=== PATIENT | female | born 1985 ===

== ENCOUNTER 2025-06-03 11:35 | Outpatient (AMB) | payer OTHER, SELFPAY ==
--- NOTE | 2025-06-03 11:37 | MHC.PC.OV ---
Vital Signs 06/03/25 11:39 Height 5 ft 1.42 in Weight 135 lb 2 oz BMI 25.2 BP 126/86 Blood Pressure Location Rt brachial Position Sitting Respiration 12 Pulse 93 Pulse Source Pulse Oximeter Temp 98.4 F Temp Source Oral Pulse Oximetry (%) 100 Oxygen Delivery Method Room Air Intake Visit Reasons: HUMAN RESOURCES RECEPTIONIST EST CARE Intake Note: New patient visit Senior Telecommunications Engineer Required: No Allergies No Known Allergies Allergy (Verified 06/03/25 11:41) Tobacco use date assessed: 06/03/25 Dental Screening Dental Screen Date: 06/03/25 Did you have a dental visit in the last 12 months?: Yes Did you have a dental problem in the last 6 months where you did not have access to dental care?: No Was dental information given to patient?: Patient has dentist HPI HPI Comments History of Present Illness Details 40 year old female with no past medical history presenting for physical exam and establish care. Has not been to pcp in awhile Family history of diabetes. [facility] Mammo < 1 year [facility] 2018 Dental UTD ROS CONSTITUTIONAL: Denies weight loss, fever and chills. HEENT: Denies changes in vision and hearing. RESPIRATORY: Denies SOB and cough. CV: Denies palpitations and CP GI: Denies abdominal pain, nausea, vomiting and diarrhea. : Denies dysuria and urinary frequency. MSK: Denies new myalgia and joint pain. SKIN: Denies rash and pruritus. NEUROLOGICAL: Denies headache PSYCHIATRIC: Denies recent changes in mood. PHYSICAL EXAM: GENERAL: Alert and oriented x 3. NAD EYES: EOMI. Anicteric. HENT: Moist mucous membranes. No scleral icterus. No cervical lymphadenopathy. LUNGS: Clear to auscultation bilaterally. CARDIOVASCULAR: Regular rate and rhythm. No murmur. No JVD. ABDOMEN: Soft, non-tender +bs EXTREMITIES: No edema. Non-tender. SKIN: No rashes or lesions. Warm. NEUROLOGIC: No focal neurological deficits. CN II-XII grossly intact PSYCHIATRIC: Cooperative. 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 1. Little interest or pleasure in doing things: not at all 2. Feeling down, depressed, or hopeless: not at all 3. Trouble falling or staying asleep, or sleeping too much: several days 4. Feeling tired or having little energy: several days 5. Poor appetite or overeating: not at all 6. Feeling bad about yourself - or that you are a failure or have let yourself or your family down: not at all 7. Trouble concentrating on things, such as reading the newspaper or watching television: not at all 8. Moving or speaking so slowly that other people could have noticed. Or the opposite - being so fidgety or restless that you have been moving around a lot more than usual: not at all 9. Thoughts that you would be better off or of hurting yourself in some way: not at all Total score: 2 Depression Screening Interpretation: Negative Depression Screening Done: Yes 63084 - PHQ-9 Billing: Yes Source: Developed by Drs. Luciano Pruett, Antonella Peter, Arun Celestin and colleagues, with an educational yancy from [employer]. Thrive Questionnaire Date Thrive assessed: 05/28/25 I am a: Patient What is your living situation today?: I have a steady place to live Within the past 12 months, did the food you bought not last and you didn't have the money to get more?: Never true Within the past 12 months, did you worry whether your food would run out before you got money to buy more?: Never true Do you have trouble paying for medicines?: No Do you have trouble getting transportation to medical appointments?: No Do you have trouble paying your heating and electricity bill?: No Do you have trouble taking care of your child, family member or friend?: No Do you have trouble with day-to-day activities such as bathing, preparing meals, shopping, managing finances, etc.?: No Are you currently unemployed and looking for a job?: No Are you interested in more education?: No Please select the resources that you would like help with: None Currently or been in a relationship where the following occur: No concerns reported THRIVE Score: 0 AUDIT C Alcohol Use Questionnaire (AUDIT-C) 1. How often do you have a drink containing alcohol?: 2-3 times a week 2. How many drinks containing alcohol do you have on a typical day when you are drinking?: 1 or 2 3. How often do you have six or more drinks on one occasion?: Never Total Score: 3 JACQUES-7 AMB Questionnaire JACQUES-7 Date JACQUES - 7 assessed: 06/03/25 Feeling nervous, anxious, or on edge: 1 = Several days Not being able to stop or control worryin = Several days Worrying too much about different things: 1 = Several days Trouble relaxin = Several days Being so restless that it is hard to sit still: 0 = Not at all Becoming easily annoyed or irritable: 0 = Not at all Feeling afraid as if something awful might happen: 0 = Not at all Total JACQUES-7 score (0-4 normal; 5-9 mild; 10-14 moderate; 15-21 severe): 4 Source: Developed by Drs. Luciano Pruett, Antonella Peter, Arun Celestin and colleagues, with an educational yancy from [employer]. JACQUES-7 Assessment Billing JACQUES-7 Assessment Tool: JACQUES-7 Assessment 69261 Physical exam (Primary Care) Vital Signs: Last Vital Signs Temp 98.4 F 06/03/25 11:39 Pulse 93 06/03/25 11:39 Resp 12 06/03/25 11:39 BP 126/86 06/03/25 11:39 Pulse Ox 100 06/03/25 11:39 Oxygen Delivery Method Room Air 06/03/25 11:39 BMI result Body Mass Index 25.2 Tobacco/Smoking Status: Tobacco use Status Tobacco use date assessed 06/03/25 06/03/25 11:47 Patient Tobacco Use Status Former Tobacco user 06/03/25 11:47 e-Cigarette/Vaping Use Never Used 06/03/25 11:47 PHQ-9: PHQ-9 Score PHQ-9: Total score 2 06/03/25 11:38 Depression Screening Interpretation: Negative Thrive Assessment: Date of Thrive Assessment Date Thrive assessed 05/28/25 06/03/25 11:38 Currently or been in a relationship where the following occur: No concerns reported Coding Level of Care Code New Pt Prev Care 40-64y(70897) Diagnoses Physical exam Z00.00 Additional Codes JACQUES-7 Assessment Billing - JACQUES-7 Assessment Tool: JACQUES-7 Assessment 81396 ([id number]) PHQ-9 - 46558 - PHQ-9 Billing: Yes ([id number]) Assessment & Plan Assessment & Plan (1) Physical exam: Code(s): Z00.00 - Encounter for general adult medical examination without abnormal findings Plan 40 year old female presenting to establish care/CPE Past medical, surgical, social history reviewed Preventive measures for age discussed Labs ordered Orders: Orders Comprehensive Met. Panel Today R35.89 - Other polyuria, Z13.0 - Encounter for screening for diseases of the blood and blood-forming organs and certain disorders involving the immune mechanism, Z13.220 - Encounter for screening for lipoid disorders, Z13.228 - Encounter for screening for other metabolic disorders Lipid Panel Today R35.89 - Other polyuria, Z13.0 - Encounter for screening for diseases of the blood and blood-forming organs and certain disorders involving the immune mechanism, Z13.220 - Encounter for screening for lipoid disorders, Z13.228 - Encounter for screening for other metabolic disorders Complete Blood Count Auto Diff Today R35.89 - Other polyuria, Z13.0 - Encounter for screening for diseases of the blood and blood-forming organs and certain disorders involving the immune mechanism, Z13.220 - Encounter for screening for lipoid disorders, Z13.228 - Encounter for screening for other metabolic disorders Hemoglobin A1c Today R35.89 - Other polyuria, Z13.0 - Encounter for screening for diseases of the blood and blood-forming organs and certain disorders involving the immune mechanism, Z13.220 - Encounter for screening for lipoid disorders, Z13.228 - Encounter for screening for other metabolic disorders TSH reflex Free T4 Today R35.89 - Other polyuria, Z13.0 - Encounter for screening for diseases of the blood and blood-forming organs and certain disorders involving the immune mechanism, Z13.220 - Encounter for screening for lipoid disorders, Z13.228 - Encounter for screening for other metabolic disorders
[2025-06-03 11:39] VITALS: BP 126/86; PULSE 93; RESP 12; TEMP 36.9; O2SAT 100; BMI 25.2
--- OUTSIDE RECORDS SUMMARY | 2025-06-03 13:16 | XMS_ITS | Clinical Summary ---
Author Organization [facility] [address] [facility] [address] Address [address] [place] [address] Phone Care Team Providers Care Political Advisor Name Role Phone Mayo Abraham MD Primary Care Provider [phone] Allergies No known active allergies Medications multivit-min/fernando dioni fumarate (MULTI VITAMIN ORAL) Take by mouth. Active Immunizations Name Administration Dates Next Due Influenza Quadravalent, MDCK , 0.5ml, preservative free (Flucelvax) 6mo and older 09/24/2017 Surgical History Surgery Date Site/Laterality Comments OTHER SURGICAL HISTORY 03/06 PROCEDURE: AR DILATION & CURETTAGE DX&/THER NONOBSTETRIC; COMMENT: Twin gestation with TRAP syndrome TONSILLECTOMY PROCEDURE: HISTORICAL TONSILLECTOMY Medical History Medical History Date Comments Other and unspecified hyperlipidemia DX:Other and unspecified hyperlipidemia Family History Medical History Relation Name Comments Cirrhosis Father Heart attack Maternal Grandfather Hypertension Maternal Grandfather Arthritis Maternal Grandmother Diabetes Maternal Grandmother Glaucoma Maternal Grandmother Heart attack Maternal Grandmother Hyperlipidemia Maternal Grandmother Hypertension Maternal Grandmother Diabetes Mother Glaucoma Mother Hyperlipidemia Mother Hypertension Mother Lung cancer Mother's side 1 uncle Breast cancer Neg Hx Colon cancer Neg Hx Ovarian cancer Neg Hx Uterine cancer Neg Hx Relation Name Status Comments Father Maternal Grandfather Maternal Grandmother Mother Alive Mother's side 1 Mother's side 2 Paternal Grandfather Paternal Grandmother Son Alive Social History Tobacco Use Types Packs/Day Years Used Date Smoking Tobacco: Former Cigarettes Q uit: 02/02/2007 Smokeless Tobacco: Never Alcohol Use Standard Drinks/Week Comments Yes 0 (1 standard drink = 0.6 oz pur e alcohol) Comments No Sex and Gender Information Value Date Recorded Sex Assigned at Not on file Legal Sex Female 9:53 AM EST Gender Identity Not on file Sexual Orientation Not on file Obstetrics History * This document contains information received from the source organization and may not represent a complete record from that organization. Para Term AB IAB SAB Ectopic Multiple Livin g Live Births 5 3 2 1 2 2 Date Outcome GA Total Labor Labor/2nd/3rd Weight Sex Type Anes PTL Sarah A1 A5 Name Clin Term 2004 2006 2007 Term 39w 0d 7h 00m/ 2778 g (98 oz) M Vag-S pont Epidur al Livin g 7 9 Dimitris Wilcox ey,cn m Delivery Location:[facility] 2017 29w 3d 1871 g (66 oz) M Livramy Velázquez Complications:Retained place nta Comments:Manual remova l of placenta Last Filed Vital Signs Vital Sign Reading Time Taken Comments Blood Pressure 112/60 11/12/2024 3:52 PM EST Pulse 74 11/12/2024 3:52 PM EST Temperature - - Respiratory Rate - - Oxygen Saturation - - Inhaled Oxygen Concentration - - Weight 60.5 kg (133 lb 6.4 oz) 11/12/2024 3:52 P M EST Height 150 cm (4' 11.06 ) 11/12/2024 3:52 PM EST Body Mass Index 26.89 11/12/2024 3:52 PM EST Plan of Treatment Health Maintenance Due Date Last Done Comments Hepatitis B Vaccines (1 of 3 - 19+ 3-dose series) 2003 DTaP,Tdap,and Td Vaccines (3 - Td or Tdap) 03/30/2020 03/30/2010, 05/15/2006 Cholesterol Screening (Lipid Panel) 08/28/2022 Social Influencers of Health Screening 08/28/2022 COVID-19 Vaccine ( season) 2024 12/08/2022, 08/02/2021, 11/13/2020, Additional history exists Depression Screening 09/30/2024 Influenza Vaccine (#1) 2025 , 08/05/2018, 09/24/2017, Additional history exists Cervical Cancer Screening: HPV 07/05/2026 07/05/2021 Breast Cancer Screening 11/26/2026 11/26/2024 Meningococcal ACWY Vaccine Aged Out 05/15/2006 N o longer eligible based on patient's age to complete this topic Hepatitis C Screening Completed 11/16/2016 HIV Screening Completed 09/04/2017 HIB Vaccines Aged Out No longer eligi ble based on patient's age to complete this topic HPV Vaccines Aged Out No longer eligi ble based on patient's age to complete this topic Hepatitis A Vaccines Aged Out No long er eligible based on patient's age to complete this topic IPV Vaccines Aged Out No longer eligi ble based on patient's age to complete this topic MMR Vaccines Aged Out No longer eligi ble based on patient's age to complete this topic Meningococcal B Vaccine Aged Out No l onger eligible based on patient's age to complete this topic Pneumococcal Vaccine: Pediatrics (0 to 5 Years) and At-Risk Patients (6 to 49 Years) Aged Out No longer eligible based on patient's age to complete this topic RSV Immunization Patients Under 20 months Aged Out No longer eligible based on patient's age to complete this topic Varicella Vaccines Aged Out No longer eligible based on patient's age to complete this topic Procedures Procedure Name Priority Date/Time Associated Diagnosis Comments MG MAMMO DIGITAL DIAGNOSTIC W BENNY BILAT Routine 11/26/2024 10:21 AM EST Mass of upper outer quadrant of right breast HPV Routine 07/05/2021 HIV SCREENING Routine 09/04/2017 HEPATITIS C SCREENING Routine 11/16/2016 from Last 3 Months or Most Recently Relevant to Health Maintenance Results * MG Mammo Digital Diagnostic w Benny bilat (11/26/2024 10:21 AM EST) Anatomical Region Laterality Modality Breast Bilateral Mammography 11/26/2024 10:2 8 AM EST Impressions 11/26/2024 10:40 AM EST RIGHT BREAST: Negative, no evidence of malignancy. In particular, no suspicious mammographic or sonographic findings adjacent to the triangular skin marker. Clinical follow-up is recommended, independent of imaging findings. Otherwise, normal interval follow-up mammogram is recommended in 12 months. LEFT BREAST: Negative, no evidence of malignancy. Normal interval follow-up is recommended in 12 months. Findings and recommendations were discussed with the patient. BREAST DENSITY: D - The breasts are extremely dense which lowers the sensitivity of mammography. BI-RADS CATEGORY: 1 - NEGATIVE RECOMMENDATION: Mammography: Clinical management of right breast is recommended. Screening left mammogram is recommended in 1 year. Ultrasound: Clinical management of right breast is recommended. Mammo Location: [facility], [address] [place] [address], [id number], . -------- FINAL REPORT -------- Dictated By: Adriana Cadena Dictated Date: 11/26/2024 10:28 ET Assigned Physician: Adriana Cadena Reviewed and Electronically Signed By: Adriana Cadena Signed Date: 11/26/2024 10:40 ET Workstation ID: [id number] Transcribed By: Self Edit Transcribed Date: 11/26/2024 10:30 ET Narrative 11/26/2024 10:40 AM EST HISTORY: Right breast mass in the upper-outer quadrant. According to the Epic notes from office visit on November 12, 2024, 2 cm mass at 10 o'clock position. STUDIES: 1. Bilateral diagnostic mammography with tomosynthesis and CAD 2. Targeted ultrasound of the right breast TECHNIQUE: Bilateral digital diagnostic mammography is obtained and read in conjunction with computer-aided detection. Tomosynthesis as well as 2-D C view imaging were obtained. COMPARISON: None. This is a baseline study. RIGHT BREAST: No significant masses, suspicious calcifications or other abnormalities are seen. In particular, no suspicious mammographic findings adjacent to the triangular skin marker placed in the upper-outer quadrant posterior depth. Targeted ultrasound of the right breast was performed at the location of the palpable concern as indicated by the patient. The survey centered at 10 o'clock position at 8 cm from the nipple did not reveal suspicious sonographic findings. LEFT BREAST: No significant masses, suspicious calcifications or other abnormalities are seen. Procedure Note Adriana Cadena MD - 11/26/2024 HISTORY: Right breast mass in the upper-outer quadrant. According to theEpic notes from office visit on November 12, 2024, 2 cm mass at 10 o'clockposition. STUDIES: 1. Bilateral diagnostic mammography with tomosynthesis and CAD 2. Targeted ultrasound of the right breast TECHNIQUE: Bilateral digital diagnostic mammography is obtained and readin conjunction with computer-aided detection. Tomosynthesis as well as2-D C view imaging were obtained. COMPARISON: None. This is a baseline study. RIGHT BREAST: No significant masses, suspicious calcifications or otherabnormalities are seen. In particular, no suspicious mammographicfindings adjacent to the triangular skin marker placed in the upper-outerquadrant posterior depth. Targeted ultrasound of the right breast was performed at the location ofthe palpable concern as indicated by the patient. The survey centered at10 o'clock position at 8 cm from the nipple did not reveal suspicioussonographic findings. LEFT BREAST: No significant masses, suspicious calcifications or otherabnormalities are seen. IMPRESSION: RIGHT BREAST: Negative, no evidence of malignancy. In particular, nosuspicious mammographic or sonographic findings adjacent to the triangularskin marker. Clinical follow-up is recommended, independent of imagingfindings. Otherwise, normal interval follow-up mammogram is recommendedin 12 months. LEFT BREAST: Negative, no evidence of malignancy. Normal intervalfollow-up is recommended in 12 months. Findings and recommendations were discussed with the patient. BREAST DENSITY: D - The breasts are extremely dense which lowers thesensitivity of mammography. BI-RADS CATEGORY: 1 - NEGATIVE RECOMMENDATION: Mammography: Clinical management of right breast is recommended. Screeningleft mammogram is recommended in 1 year. Ultrasound: Clinical management of right breast is recommended. Mammo Location: [facility], [address] [place] [address], [id number], . -------- FINAL REPORT -------- Dictated By: Adriana Cadena Dictated Date: 11/26/2024 10:28 ET Assigned Physician: Adriana Cadena Reviewed and Electronically Signed By: Adriana Cadena Signed Date: 11/26/2024 10:40 ET Workstation ID: [id number] Transcribed By: Self Edit Transcribed Date: 11/26/2024 10:30 ET us Cyndi Benito CNM IMG BI PROCEDURES Final Res ult * Cervical Cancer Screening: HPV (07/05/2021) Cervical Cancer Screening: HPV negative abstracted Historical Provider HEALTH MAINTENANCE Final Result * HIV Screening (09/04/2017) HIV Screening abstracted Historical Provider HEALTH MAINTENANCE Final Result * Hepatitis C Screening (11/16/2016) Hepatitis C Screening abstracted Historical Provider HEALTH MAINTENANCE Final Result from Last 3 Months or Most Recently Relevant to Health Maintenance Insurance [facility] [address] [place] [address] Care Teams Political Advisor Relationship Specialty Start Date End Date Mayo Abraham MD [address] [facility] [address] [place], [place] PCP - General 04/05/00
== END 2025-06-03 12:00 | disposition home or self-care (01) ==
LOC: HO.HMCFM 11:35
PROVIDERS: PCP Internal Medicine; Visit Provider Internal Medicine
DX: Z00.00 Encounter for general adult medical examination without abnormal findings (principal)

== ENCOUNTER → 2025-06-03 11:35 | Outpatient (BNVA) | payer OTHER, SELFPAY | PROVIDERS: PCP Internal Medicine; Visit Provider Internal Medicine | DX: Z00.00 Encounter for general adult medical examination without abnormal findings (principal); Z76.89 Persons encountering health services in other specified circumstances; Z13.31 Encounter for screening for depression; Z13.39 Encounter for screening examination for other mental health and behavioral disorders | CPT/HCPCS: 96127 ==